=== PATIENT | female | born 1950 | race Caucasian/White ===

== ENCOUNTER 2017-01-12 12:12 | Emergency (ER) | payer BC ==
[~2017-01-12] VITALS: Ht 165.1 cm; Wt 75.0 kg
[2017-01-12 12:13] VITALS: BP 154/76; PULSE 92; RESP 20; TEMP 98.5; O2SAT 96
[2017-01-12] MEDS ORDERED: HYDR25TA5 PO (13:38)
[2017-01-12] MEDS ORDERED: LOSA25TA PO (13:38)
--- NOTE | 2017-01-12 14:14 | PD ---
HPI Chief Complaint: Injury Time Seen by Provider: 14:14 Travel History International Travel<30 days: No Contact w/Intl Traveler<30days: No Traveled to known affect area: No History of Present Illness HPI 66-year-old female presents to the emergency Department with complaint of possible foreign body in her right foot since . Does not know what she may have stepped on. Has attempted to remove possible foreign body with no success. Reports up-to-date on tetanus vaccine. Denies paresthesias, loss of sensation, decreased range of motion, decreased strength to the affected extremity. Denies edema, erythema, fever, chills, nausea, vomiting. Pain to the area is aggravated with walking. Patient has decreased while at rest. Has no other medical complaints. No other modifying factors or associated signs and symptoms. PFSH Past Medical History Cardiovascular Problems: Yes Social History Tobacco Use: No Allergies-Medications (Allergen,Severity, Reaction): Coded Allergies: No Known Allergies (Unverified , 01/12/17) Reported Meds & Prescriptions Reported Meds & Active Scripts Active Ibuprofen 600 Mg Tab 600 Mg PO Q8HR PRN Reported Losartan (Losartan Potassium) 25 Mg Tab 25 Mg PO DAILY Hydrochlorothiazide 25 Mg Tab 25 Mg PO DAILY Review of Systems Except as stated in HPI: all other systems reviewed are Neg Physical Exam Narrative GENERAL: Well-nourished, well-developed female patient, in no acute distress SKIN: Warm and dry. Small, healed wound noted to the bottom of the mid right foot; areas without erythema, edema, drainage. No signs of infection; with tenderness on palpation; no palpable foreign body. Right lower extremity supple and non-tense with 2+ pedal pulses and sensory intact and without erythema or edema. HEAD: Atraumatic. Normocephalic. EYES: Pupils equal and round. No scleral icterus. No injection or drainage. ENT: Mucosa pink and moist. Airway patent. NECK: Trachea midline. CARDIOVASCULAR: Regular rate. RESPIRATORY: No accessory muscle use. GASTROINTESTINAL: Flat. MUSCULOSKELETAL: No obvious deformities. No clubbing. No cyanosis. No edema. NEUROLOGICAL: Awake and alert. Oriented 3. No obvious cranial nerve deficits. Motor grossly within normal limits. Normal speech. PSYCHIATRIC: Appropriate mood and affect; insight and judgment normal. Data Data Last Documented VS Vital Signs Date Time Temp Pulse Resp B/P Pulse Ox O2 Delivery O2 Flow Rate FiO2 01/12/17 12:13 98.5 92 20 154/76 96 Room Air Orders Foot, Complete ([id number]) (01/12/17 14:03) [facility] Medical Decision Making Medical Screen Exam Complete: Yes Emergency Medical Condition: Yes Medical Record Reviewed: Yes Differential Diagnosis Soft tissue foreign body, puncture wound, plantar wart Narrative Course 66-year-old female with possible foreign body in the bottom of her right foot. She reports being up-to-date on her tetanus vaccination. Right foot x-ray ordered. 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 X-ray report provided to the patient. Instructed patient to follow up with podiatry. Ibuprofen prescribed for home. Patient verbalizes understanding and agreement with treatment plan. Patient is medically cleared and stable for discharge. Discussed reasons to return to the emergency department. Instructed patient to follow up with primary care provider. Patient agrees with treatment plan. The patients vital signs are stable and the patient is stable for outpatient follow-up and treatment. Patient discharged home, stable and in no acute distress. Diagnosis Primary Impression: Puncture wound of right foot Qualified Code: S91.331A - Puncture wound of right foot, initial encounter Referrals: [employer] Primary Care Physician Patient Instructions: General Instructions, Puncture Wound (ED) Additional Instructions: Ibuprofen or Tylenol as instructed and as needed for pain and inflammation Follow up primary care provider Follow-up with podiatry Return to the emergency department immediately with worsening of symptoms Med/Other Pt SpecificInfo: Prescription(s) given Scripts Ibuprofen 600 Mg [id number] Mg PO Q8HR PRN (PAIN SCALE 1 TO 10) #30 TAB Ref 0 Prov:Delia Potter 01/12/17 Disposition: 01 DISCHARGE HOME Condition: Stable Delia Potter Jan 12, 2017 14:14
--- NOTE | 2017-01-12 14:40 | RADRPT ---
EXAM DATE/TIME: 01/12/2017 14:24 [facility] COMPARISON: No previous studies available for comparison. INDICATIONS : Right foot pain after stepping on an unknown object. MEDICAL HISTORY : None. SURGICAL HISTORY : None. ENCOUNTER: Initial ACUITY: 4 - 6 days PAIN SCORE: 7/10 LOCATION: Right plantar surface. FINDINGS: Moderate osteoarthritis is noted involving the right first metatarsal phalangeal joint. There is no acute fracture or dislocation. No radiopaque foreign body is noted. CONCLUSION: 1. 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 2. No acute fracture, dislocation or radiopaque foreign body. Jim Hodge MD on January 12, 2017 at 14:28 Board Certified Radiologist. This report was verified electronically.
[2017-01-12] MEDS ORDERED: IBUP-232 PO (14:52)
== END 2017-01-12 15:03 | disposition home or self-care (01) ==
LOC: NEPK 12:12
DX: S91.331A Puncture wound without foreign body, right foot, initial encounter (principal); W22.8XXA Striking against or struck by other objects, initial encounter
CPT/HCPCS: 73630; 99283